=== PATIENT | male | born 1975 | race Caucasian/White ===

== ENCOUNTER 2016-10-10 12:40 | Emergency (ER) | payer MEDICAID ==
[~2016-10-10] VITALS: Ht 182.9 cm; Wt 82.0 kg
[~2016-10-10 12:40] MED LIST: ALPR1TAB2 PO
[2016-10-10 12:51] VITALS: BP 139/86
[2016-10-10 14:08] LABS: HEMOGLOBIN 15.2 g/dL (13.7-18.0); WHITE BLOOD COUNT 9.5 x10^3/uL (3.4-10)
[2016-10-10 14:21] LABS: ASPARTATE AMINO TRANSFERASE 15 U/L (15-37); BLOOD UREA NITROGEN 17 mg/dL (7-18)
== END 2016-10-10 16:20 | disposition home or self-care (01) ==
LOC: ED 15:28
DX: S39.011A Strain of muscle, fascia and tendon of abdomen, initial encounter (principal); I48.91 Unspecified atrial fibrillation; F19.10 Other psychoactive substance abuse, uncomplicated; X50.1XXA Overexertion from prolonged static or awkward postures, initial encounter; Y93.89 Activity, other specified; Y99.8 Other external cause status; Y92.89 Other specified places as the place of occurrence of the external cause
CPT/HCPCS: 36415; 80053; 83690; 85025; 99284

== ENCOUNTER 2016-12-07 03:30 | Emergency (ER) | payer MEDICAID ==
[~2016-12-07] VITALS: Ht 182.9 cm; Wt 85.0 kg
[2016-12-07] MEDS ORDERED: DIAZEPAM 5 MG TABLET ONE (03:45)
[2016-12-07] MEDS ORDERED: DIAZEPAM 5 MG TABLET PO ONE (04:00)
[2016-12-07 04:35] VITALS: BP 124/71
== END 2016-12-07 04:37 | disposition home or self-care (01) ==
LOC: ED 03:40
DX: F41.1 Generalized anxiety disorder (principal); I48.91 Unspecified atrial fibrillation
CPT/HCPCS: 99282

== ENCOUNTER 2017-01-29 08:51 | Emergency (ER) | payer MEDICAID ==
[~2017-01-29] VITALS: Ht 185.4 cm; Wt 85.0 kg
[2017-01-29] MEDS ORDERED: KETOROLAC 30 MG/1 ML ONE (09:16)
[2017-01-29] MEDS ORDERED: KETOROLAC 30 MG/1 ML IM ONE (09:30)
[2017-01-29] MEDS ORDERED: METHOCARBAMOL 500 MG TABLET PO ONE (09:30)
[2017-01-29 09:57] VITALS: BP 116/72
== END 2017-01-29 10:10 | disposition home or self-care (01) ==
LOC: ED 09:50
DX: S39.012A Strain of muscle, fascia and tendon of lower back, initial encounter (principal); G89.29 Other chronic pain; F12.129 Cannabis abuse with intoxication, unspecified; F17.210 Nicotine dependence, cigarettes, uncomplicated; X58.XXXA Exposure to other specified factors, initial encounter; Y93.89 Activity, other specified; Y92.89 Other specified places as the place of occurrence of the external cause; Y99.8 Other external cause status
CPT/HCPCS: 96372; 99283; J1885

== ENCOUNTER 2017-05-29 17:46 | Emergency (ER) | payer MEDICAID ==
[~2017-05-29] VITALS: Ht 177.8 cm; Wt 85.0 kg
[2017-05-29] MEDS ORDERED: PROMETHAZINE 25 MG/ML, 1ML ONE (18:29)
[2017-05-29] MEDS ORDERED: SODIUM CHLORIDE FLUSH 10ML SYR IVF ONE (18:30)
[2017-05-29] MEDS ORDERED: SODIUM CHLORIDE 0.9% 1,000ML IVBOLUS ONE (18:30)
[2017-05-29] MEDS ORDERED: PROMETHAZINE 25 MG/ML, 1ML IM ONE (18:30)
[2017-05-29] MEDS ORDERED: ATOM40CA PO (18:34)
[2017-05-29 18:40] LABS: BASOPHILS # (AUTO) 0.04 x10^3/uL (0-0.1); BASOPHILS % (AUTO) 0 % (0-1); EOSINOPHILS # (AUTO) 0.13 x10^3/uL (0-0.4); EOSINOPHILS % (AUTO) 1 % (1-7); LYMPHOCYTES # (AUTO) 2.62 x10^3/uL (1-3.4); LYMPHOCYTES % (AUTO) 27 % (22-44); MD NO; MEAN CORPUSCULAR HEMOGLOBIN 29.6 pg (27.5-34.5); MEAN CORPUSCULAR HGB CONC 33.8 g/dL (33.2-36.2); MEAN CORPUSCULAR VOLUME 87.4 fL (81-97); MEAN PLATELET VOLUME 9.1 fL (7.4-10.4); MONOCYTES % (AUTO) 11 % (2-9); NEUTROPHILS # (AUTO) 5.98 x10^3/uL (1.8-6.8); NEUTROPHILS % (AUTO) 61 % (42-75); PLATELET COUNT 293 x10^3/uL (130-400); RED BLOOD COUNT 4.98 x10^6/uL (4.38-5.82); RED CELL DISTRIBUTION WIDTH 15.1 % (9.4-14.8)
[2017-05-29 18:51] LABS: ALANINE AMINOTRANSFERASE 40 U/L (12-78); ALBUMIN 3.6 g/dL (3.4-5.0); ANION GAP 11 mmol/L (5-15); CALCIUM 8.9 mg/dL (8.5-10.1); CHLORIDE 105 mmol/L (98-107)
[2017-05-29 18:53] LABS: ALKALINE PHOSPHATASE 80 U/L (45-117); BILIRUBIN,TOTAL 0.2 mg/dL (0.2-1.0); TOTAL PROTEIN 7.4 g/dL (6.4-8.2)
[2017-05-29 19:24] VITALS: BP 121/87
== END 2017-05-29 19:26 | disposition home or self-care (01) ==
LOC: ED 19:20
DX: E86.0 Dehydration (principal); R11.2 Nausea with vomiting, unspecified; R19.7 Diarrhea, unspecified; R10.84 Generalized abdominal pain; F17.200 Nicotine dependence, unspecified, uncomplicated
CPT/HCPCS: 36415; 80053; 83690; 85025; 96360; 96372; 99284; J2550; J7030